=== PATIENT | female | born 1990 | race Asian ===

== ENCOUNTER 2018-06-30 10:15 | Emergency (ER) | payer SELFPAY ==
[~2018-06-30] VITALS: Ht 157.5 cm; Wt 75.9 kg
[2018-06-30 10:21] VITALS: BP 116/57; PULSE 90; RESP 16; Ht 157.5 cm; Wt 75.9 kg
--- NOTE | 2018-06-30 11:41 | ERD ---
ER Documentation Chief Complaint Chief Complaint HEMATURIA TODAY. 7 WEEKS HPI 27-year-old female currently 7 weeks presents with complaint of vaginal spotting. Has noticed tingeing of blood in underwear but has not required sanitary pads. Also with complaint of block setter gypsum nausea. Also reporting fever at home with measurement of 99.4. She otherwise denies abdominal pelvic pain, significant vaginal bleeding, vaginal discharge, URI type symptoms, urinary symptoms. Scheduled to have her first visit with [facility] on July 03. First pregnancies was uncomplicated, delivery by . ROS All systems reviewed and are negative except as per history of present illness. Allergies Allergies: Coded Allergies: No Known Allergy (Unverified , 06/30/18) Physical Exam Vitals Vital Signs Date Temp Pulse Resp B/P (MAP) Pulse Ox O2 O2 Flow FiO2 Time Delivery Rate 06/30/18 98.7 90 16 116/57 99 10:21 (76) Physical Exam I have reviewed the triage vital signs. Const: Well nourished, well developed, appears stated age Eyes: PERRL, no conjunctival injection HENT: NCAT, Neck supple without meningismus CV: RRR, Warm, well-perfused extremities RESP: CTAB, Unlabored respiratory effort GI: soft, non-tender, non-distended, no masses MSK: No gross deformities appreciated Skin: Warm, dry. No rashes Neuro: grossly non focal Psych: Appropriate mood and affect. Results 24 hrs Laboratory Tests Test 06/30/18 11:39 Urine Color STRAW Urine Clarity SLIGHTLY CLOUDY Urine pH 6.0 Urine Specific [place] 1.003 Urine Ketones NEGATIVE mg/dL Urine Nitrite NEGATIVE mg/dL Urine Bilirubin NEGATIVE mg/dL Urine Urobilinogen NEGATIVE mg/dL Urine Leukocyte Esterase NEGATIVE Yu/ul Urine Microscopic RBC 1 /HPF Urine Microscopic WBC 0 /HPF Urine Squamous Epithelial Cells FEW /HPF Urine Bacteria FEW /HPF Urine Hemoglobin NEGATIVE mg/dL Urine Glucose NEGATIVE mg/dL Urine Total Protein NEGATIVE mg/dl Procedures/MDM 27-year-old 7-week female presents with vaginal spotting. Doubt emergent etiology of this bleeding. She is hemodynamically stable without report of significant bleeding. No reports of abdominal pelvic pain. Bleeding likely secondary to vaginal spotting seen in early . She has no other concerning symptoms and is nontoxic-appearing. Plan: UA to rule out infection given reported mild fever Follow-up as planned with [facility] on July 03 UA unremarkable DISPOSITION PLAN: We discussed follow up with the patient's primary care doctor within 24 to 48 hours. Patient counseled regarding my diagnostic impression and care plan. Prior to discharge all questions answered. Pt agrees with treatment plan and understands strict return precautions. Precautionary instructions provided including instructions to return to the ER if not improving or for any worsening or changing symptoms or concerns. Departure Condition: Stable KENIA MURPHY PA-C Jun 30, 2018 11:41
== END 2018-06-30 12:26 | disposition home or self-care (01) ==
LOC: FTE 10:15
DX: O26.851 Spotting complicating pregnancy, first trimester (principal); R31.9 Hematuria, unspecified; Z3A.01 Less than 8 weeks gestation of pregnancy
CPT/HCPCS: 81001; 81003; 87086; 99283

== ENCOUNTER 2018-07-08 15:57 | Emergency (ER) | payer MEDICAID ==
[~2018-07-08] VITALS: Wt 75.7 kg
[2018-07-08] MEDS ORDERED: OXYC-279 PO (17:48)
[2018-07-08] MEDS ORDERED: CLIN300C10 PO (17:48)
[2018-07-08] MEDS ORDERED: CLINDAMYCIN 300 MG CAP PO ONE (18:00)
[2018-07-08] MEDS ORDERED: OXYCODONE/ACETAMINOPHEN (5/325) TAB PO ONE (18:00)
[2018-07-08] MEDS ORDERED: CEFTRIAXONE 1 GM INJ IM ONE (18:00)
--- NOTE | 2018-07-08 18:25 | ERD ---
ER Documentation Chief Complaint Chief Complaint LUMP ON LEFT AXILLA 5-6 DAYS HPI 27-year-old woman 9 weeks complains of painful lump to the left axilla times 5 days. Patient shaves her axillary hair. She denies erythema to the axilla, no purulent discharge, no fevers or chills, no cough, no chest pain or shortness of breath, no swelling or deformities to the left breast, no recent weight loss. ROS All systems reviewed and are negative except as per history of present illness. Medications Home Meds Active Scripts Clindamycin Hcl* (Clindamycin Hcl*) 300 Mg Capsule, 450 MG PO TID for 7 Days, CAP Prov:YOCASTA GARRISON MD 07/08/18 Oxycodone HCl/Acetaminophen (Percocet 5-325 mg Tablet) 1 Each Tablet, 1 EACH PO TID PRN for PAIN, #15 TAB Prov:YOCASTA GARRISON MD 07/08/18 Allergies Allergies: Coded Allergies: No Known Allergy (Unverified , 06/30/18) PMhx/Soc Hx Alcohol Use: No Hx Substance Use: No Hx Tobacco Use: No FmHx Family History: No diabetes Physical Exam Vitals Vital Signs Date Temp Pulse Resp B/P (MAP) Pulse Ox O2 O2 Flow FiO2 Time Delivery Rate 07/08/18 99.7 94 18 126/58 99 16:22 (80) Physical Exam GENERAL: Well-developed, well-nourished, well-hydrated, in no apparent distress, looks nontoxic in appearance HEENT: Moist mucous membranes, pink conjunctiva, no cervical spine tenderness or step-off deformities, no goiter, no jaundice or icterus, extraocular movements intact without pain. No submandibular induration, and no pharyngeal erythema CARDIAC: Regular rate and rhythm, no murmurs rubs or gallops LUNGS: Clear bilaterally no wheezing crackles or stridor ABDOMEN: Soft nontender, no guarding, no rigidity, no rebound, no psoas sign no obturator sign. Normoactive bowel sounds SKIN: Warm and dry to touch, tender, palpable left axillary lymphadenopathy. Skin is without erythema or induration EXTREMITIES: No clubbing cyanosis or edema, calves are bilaterally symmetrical, no Homans sign, no popliteal cord sign. Distal pulses equal and bilateral Results 24 hrs Current Medications Medications Dose Sig/Neha Start Time Status Last (Trade) Ordered Route PRN Stop Time Admin Dose Reason Admin Ceftriaxone 1 gm ONCE ONCE 07/08/18 DC Sodium IM 18:00 (Rocephin) 07/08/18 18:01 Clindamycin 450 mg ONCE ONCE 07/08/18 DC HCl PO 18:00 (Cleocin) 07/08/18 18:01 Oxycodone/ 1 tab ONCE ONCE 07/08/18 DC Acetaminophen PO 18:00 (Percocet 07/08/18 18:01 (5/ 325)) Procedures/MDM Patient has an axillary abscess versus lymphadenitis and will be treated as an outpatient with antibiotics. She has no changes in the breast and nothing to suggest breast carcinoma although I did tell her if the swelling continues despite antibiotic therapy she may require further workup and biopsy. I also in formed her that if she develops a fever, worsening pain, or worsening swelling she will have to return for IV antibiotics and possible admission. She and her who was at the bedside preferred outpatient therapy with oral antibiotics. I administered ceftriaxone 1 g IM x1, Percocet 1 tablet p.o., clindamycin 450 mg p.o. x1. Patient given return precaution instructions and follow-up recommendations. Patient feels much better at this time, and vital signs are normal, symptoms have improved. I did give strict instructions to return to the ED if symptoms continue or worsen, patient will otherwise follow-up with primary care queta holm. Patient understood instructions and agreed to plan. Disclaimer: Inadvertent spelling and grammatical errors are likely due to EHR/dictation software use and do not reflect on the overall quality of patient care. Also, please note that the electronic time recorded on this note does not necessarily reflect the actual time of the patient encounter. Departure Diagnosis: Primary Impression: Axillary abscess Additional Impression: Lymphadenitis Condition: Good Patient Instructions: Abscess, Antiobiotic Treatment Only YOCASTA GARRISON MD Jul 08, 2018 18:25
[2018-07-08] MEDS ORDERED: CLINDAMYCIN 150 MG CAP PO ONE (19:00)
[2018-07-08 19:10] VITALS: BP 115/66; PULSE 67; RESP 18
== END 2018-07-08 19:14 | disposition home or self-care (01) ==
LOC: FTE 15:57
DX: O99.711 Diseases of the skin and subcutaneous tissue complicating pregnancy, first trimester (principal); L02.412 Cutaneous abscess of left axilla; L04.2 Acute lymphadenitis of upper limb; Z3A.09 9 weeks gestation of pregnancy
CPT/HCPCS: 96372; J0696; Z7502; Z7610

== ENCOUNTER 2019-01-18 16:26 | Inpatient (IN) | payer OTHER ==
[~2019-01-18] VITALS: Ht 160 cm; Wt 80.6 kg
[~2019-01-18 16:26] MED LIST: CLIN300C10 PO; DOCU-144 PO; FERR160T5 PO; HC.5O30 TOP; OXYC-279 PO
[2019-01-18 17:03] VITALS: Ht 160 cm; Wt 80.6 kg
[2019-01-18 17:04] VITALS: BP 120/80; PULSE 82; RESP 20
[2019-01-18] MEDS: LACTATED RINGER'S 1,000 ML IV SCH (17:59)
[2019-01-18] MEDS ORDERED: OXYTOCIN 30 UNITS/LR 500 ML IV SCH ×2 (18:00→18:37)
[2019-01-18] MEDS ORDERED: CEFAZOLIN 2 GM/50 ML (PMX) 50 ML IVPB SCH (18:00)
[2019-01-18] MEDS ORDERED: MISOPROSTOL 200 MCG TAB PR PRN ×2 (18:00→19:00)
[2019-01-18] MEDS ORDERED: OXYTOCIN 30 UNITS/LR 500 ML IV PRN ×2 (18:00→19:00)
[2019-01-18] MEDS ORDERED: CARBOPROST 250 MCG INJ IM PRN ×2 (18:00→19:00)
[2019-01-18] MEDS ORDERED: METHYLERGONOVINE 0.2 MG INJ IM PRN ×2 (18:00→19:00)
[2019-01-18] MEDS ORDERED: LACTATED RINGER'S 1,000 ML IV SCH (18:37)
[2019-01-18] MEDS ORDERED: morphine SULFATE/PF (10 MG/10 ML) INJ ONE (18:54)
[2019-01-18] MEDS ORDERED: KETOROLAC 30 MG INJ ONE (18:54)
[2019-01-18] MEDS ORDERED: METOCLOPRAMIDE 10 MG INJ ONE (18:54)
[2019-01-18] MEDS ORDERED: NA PHOSPHATE/BIPHOS 133 ML ENEMA PR PRN (19:00)
[2019-01-18] MEDS ORDERED: METHYLERGONOVINE 0.2 MG TAB PO PRN (19:00)
[2019-01-18] MEDS: KETOROLAC 30 MG INJ IV SCH (19:00)
[2019-01-18] MEDS ORDERED: HYDROCODONE/APAP (5/325) TAB PO PRN (19:00)
[2019-01-18] MEDS ORDERED: LANOLIN HPA 1 PKT TOP PRN (19:00)
[2019-01-18] MEDS ORDERED: EPHEDrine 25 MG/5 ML SYG ONE (19:20)
[2019-01-18] MEDS ORDERED: OXYTOCIN 30 UNITS/LR 500 ML IV ONE (19:56)
[2019-01-18] MEDS ORDERED: DIPHENHYDRAMINE 50 MG INJ IV PRN ×2 (20:30)
[2019-01-18] MEDS ORDERED: KETOROLAC 30 MG INJ IV PRN ×2 (20:30)
[2019-01-18] MEDS ORDERED: NALOXONE (0.4 MG/ML) INJ IV PRN (20:30)
[2019-01-18] MEDS ORDERED: ONDANSETRON 4 MG INJ IV PRN ×2 (20:30)
[2019-01-18] MEDS ORDERED: morphine 2 MG INJ IV PRN ×6 (20:30)
[2019-01-18 23:10] VITALS: BP 108/57; PULSE 64; RESP 18
[2019-01-18] MEDS: SENNA/DOCUSATE NA (8.6MG/50MG) TAB PO SCH (23:15)
[2019-01-19] MEDS: LACTATED RINGER'S 1,000 ML IV SCH ×2 (01:39→09:29)
[2019-01-19] MEDS: KETOROLAC 30 MG INJ IV SCH ×4 (01:48→18:53)
[2019-01-19] MEDS: CEFAZOLIN 2 GM/50 ML (PMX) 50 ML IVPB SCH ×3 (01:48→18:03)
[2019-01-19 03:30] VITALS: BP 104/64; PULSE 78; RESP 20
[2019-01-19] MEDS: ACCU-CHEK XX SCH ×3 (07:30→13:50)
[2019-01-19 08:00] VITALS: BP 103/55; PULSE 62; RESP 18
[2019-01-19] MEDS: SENNA/DOCUSATE NA (8.6MG/50MG) TAB PO SCH ×2 (09:28→21:29)
[2019-01-19 12:00] VITALS: BP 101/54; PULSE 72; RESP 18
[2019-01-19] MEDS ORDERED: BISACODYL (EC) 5 MG TAB PO ONE (12:30)
[2019-01-19 16:00] VITALS: BP 97/54; PULSE 71; RESP 20
[2019-01-19 20:00] VITALS: BP 102/57; PULSE 80; RESP 18
[2019-01-20] MEDS: KETOROLAC 30 MG INJ IV SCH (01:18)
[2019-01-20 04:00] VITALS: BP 95/54; PULSE 63; RESP 17
[2019-01-20] MEDS: IBUPROFEN 800 MG TAB PO SCH ×3 (06:10→21:20)
[2019-01-20] MEDS: HYDROCODONE/APAP (5/325) TAB PO PRN (06:59)
[2019-01-20 08:00] VITALS: BP 104/64; RESP 18
[2019-01-20] MEDS ORDERED: FLU VACC QS 2019-20 (6MOS UP) 0.5 ML SYG IM* ONE (10:00)
[2019-01-20] MEDS: SENNA/DOCUSATE NA (8.6MG/50MG) TAB PO SCH ×2 (12:22→21:21)
[2019-01-20 15:45] VITALS: BP 115/64; PULSE 88; RESP 18
[2019-01-20 20:00] VITALS: BP 107/60; PULSE 90; RESP 19
[2019-01-20] MEDS ORDERED: BISACODYL 10 MG SUPP PR ONE (21:00)
[2019-01-21] MEDS: HYDROCODONE/APAP (5/325) TAB PO PRN (02:20)
[2019-01-21 03:20] VITALS: BP 91/53; PULSE 65; RESP 21
[2019-01-21] MEDS: IBUPROFEN 800 MG TAB PO SCH ×2 (05:50→14:06)
[2019-01-21 08:38] VITALS: BP 96/57; PULSE 63; RESP 17
[2019-01-21] MEDS: SENNA/DOCUSATE NA (8.6MG/50MG) TAB PO SCH (08:55)
[2019-01-21] MEDS ORDERED: MEASLES,MUMPS,RUBELLA VACCINE INJ SC* ONE (09:00)
[2019-01-21] MEDS ORDERED: DIPHTH/TET/ACEL PERTUSS (ADULT) 0.5 ML VIAL IM* ONE (09:00)
[2019-01-21 15:40] VITALS: BP 98/60; PULSE 70; RESP 18
== END 2019-01-21 16:26 | disposition home or self-care (01) | DRG 786 ==
LOC: OBT 16:26 → L-D 16:26 → OBT 17:30 → L-D 17:30 → PP1 22:30
PROVIDERS: ADMIT Obstetrics & Gynecology; ATTEND Obstetrics & Gynecology
PROC: 10D00Z1 Extraction of Products of Conception, Low, Open Approach (ICD-10-PCS; principal; 2019-01-18 18:30)
DX: O65.5 Obstructed labor due to abnormality of maternal pelvic organs (principal); O60.13X0 Preterm labor second trimester with preterm delivery third trimester, not applicable or unspecified; N73.6 Female pelvic peritoneal adhesions (postinfective); O34.211 Maternal care for low transverse scar from previous cesarean delivery; Z3A.36 36 weeks gestation of pregnancy; Z37.0 Single live birth
CPT/HCPCS: 82962; 84112; 85025; 85610; 85730; 86592; 86850; 86900; 86901; 87340; 90686; 99464; G0463; J0690; J1885; J2274; J2590; J2765; J7120